=== PATIENT | male | born 1970 | race Caucasian/White ===

== ENCOUNTER 2019-01-29 11:26 | Emergency (ER) | payer OTHER ==
[~2019-01-29] VITALS: Ht 177.8 cm; Wt 152.9 kg
[2019-01-29 11:29] VITALS: Ht 177.8 cm; Wt 152.9 kg
[2019-01-29 12:54] LABS: BASOPHIL % 0.9 % (0-2); PLATELET COUNT 302 x10^3mcL (130-400); RED CELL DISTRIBUTION WIDTH 13.8 % (11.5-14.5)
[2019-01-29 13:16] LABS: CALCIUM 8.5 mg/dL (8.5-10.1); CHLORIDE SERUM 102 mmol/L (98-107); GFR1 > 60 mL/min; GLUCOSE SERUM 103 mg/dL (74-106); POTASSIUM SERUM 3.3 mmol/L (3.5-5.1); SODIUM SERUM 146 mmol/L (136-145)
[2019-01-29 13:20] LABS: ALBUMIN 3.4 g/dL (3.4-5.0); ALKALINE PHOSPHATASE 96 U/L (46-116); ALT/SGPT 45 U/L (16-63); AST/SGOT 28 U/L (15-37); BILIRUBIN TOTAL 0.8 mg/dL (0.20-1.00)
[2019-01-29 15:48] VITALS: BP 190/118
== END 2019-01-29 16:00 | disposition short-term general hospital (02) ==
LOC: ED 11:26
PROVIDERS: Emergency Medicine
DX: N48.30 Priapism, unspecified (principal); I10 Essential (primary) hypertension
CPT/HCPCS: 36415; J2001; J2370